=== PATIENT | female | born 1985 | race Native Hawaiian/Other Pacific Islander ===

== ENCOUNTER 2017-01-14 02:15 | Emergency (ER) | payer BC ==
[~2017-01-14] VITALS: Ht 165.1 cm; Wt 128.1 kg
[2017-01-14 02:22] VITALS: TEMP 37; Ht 165.1 cm; Wt 128.1 kg
[2017-01-14] MEDS ORDERED: SODIUM CHLORIDE 0.9% 1000ML 1,000 ML IV STA (02:45)
[2017-01-14 03:15] LABS: URINE APPEARANCE CLEAR (CLEAR); URINE BILIRUBIN NEG (NEG); URINE COLOR YELLOW; URINE NITRITE NEG (NEG); URINE SPECIFIC GRAVITY 1.013 (1.000-1.030); UROBILINOGEN NEG (NEG)
[2017-01-14 03:19] LABS: MANUAL MICROSCOPIC REQUIRED? NO; REVIEW REQ? NO
--- NOTE | 2017-01-14 03:23 | EMERGENCY ROOM VISIT NOTE ---
History Report prepared by Eriberto: Jaylyn Weber Under the Supervision of: Dr. Sidney Lopez D.O. First contact with patient: 02:37 Chief Complaint: FLANK PAIN Stated Complaint: PAIN IN RIGHT SIDE AND BACK History of Present Illness The patient is a 31 year old female who presents to the Emergency Room with complaints of persistent right flank pain starting yesterday evening. She currently rates her discomfort as a 7/10 in severity. The pain worsens when she is lying down. It improves when she is standing. The pain seems to depend on what position she is in and how she moving. She reports hematuria. She has pain in her side with breathing. She denies any dysuria, chest pain, SOB, abdominal pain, vaginal bleeding, or discharge. She has a history of UTI, hypertension, and lower back pain attributed to arthritis. She still has her gallbladder. She denies any history of kidney stones. Her LNMP was in October. She sometimes takes progesterone. She is not sexually active. She denies any tobacco or alcohol use. Source of History: patient Onset: yesterday evening Position: other (right flank) Symptom Intensity: 7/10 Quality: other (pain) Timing: other (persistent) Modifying Factors (Worsening): other (lying down) Modifying Factors (Relieving): other (standing) Associated Symptoms: No chest pain, No SOB, No abdominal pain Note: Pt reports hematuria, side pain with breathing. Pt denies dysuria, vaginal bleeding/discharge. Review of Systems See HPI for pertinent positives & negatives. A total of 10 systems reviewed and were otherwise negative. Past Medical & Surgical Medical Problems: (1) Hypertension Family History No pertinent family history stated. Social History Smoking Status: Never Smoker Occupation Status: employed Current/Historical Medications Scheduled Hydrochlorothiazide (Hydrochlorothiazide), 1 TAB PO DAILY Loratadine (Claritin), 10 MG PO DAILY Allergies Coded Allergies: Levofloxacin (Verified Allergy, Intermediate, FEET & HANDS TINGLING, ) Physical Exam Vital Signs Date Time Temp Pulse Resp B/P (MAP) Pulse Ox O2 Delivery O2 Flow Rate FiO2 01/14/17 04:46 85 18 175/107 100 Room Air 01/14/17 04:16 85 19 174/113 95 01/14/17 02:22 37.0 87 19 165/107 96 Room Air Physical Exam GENERAL: Patient is awake, alert, and in no acute distress. Patient is resting comfortably and showing no signs of anxiety EYES: The conjunctivae are clear. The pupils are round and reactive. EARS, NOSE, MOUTH AND THROAT: The nose is without any evidence of any deformity. Mucous membranes are moist tongue is midline NECK: The neck is nontender and supple. RESPIRATORY: Normal respiratory effort is noted there is no evidence of wheezing rhonchi or rales CARDIOVASCULAR: Regular rate and rhythm noted there no murmurs rubs or gallops normal S1 normal S2 GASTROINTESTINAL: The abdomen is mildly distended but soft. RUQ tenderness noted to palpation, no guarding or rigidity. BACK: No midline tenderness or or step-off noted range of motion in flexion extension as well as rotation no signs of muscle spasm noted MUSCULOSKELETAL/EXTREMITIES: There is no evidence of gross deformity full range of motion is noted in the hips and shoulders SKIN: There is no obvious evidence of any rash. There are no petechiae, pallor or cyanosis noted. NEUROLOGIC: Patient is awake alert and oriented x3 Medical Decision & Procedures ER Provider Diagnostic Interpretation: X-ray results as stated below per interpretation by me. Chest X-ray: No definite infiltrate, no free air, nonspecific bowel gas pattern noted, constipation noted, no signs of bowel obstruction. Right upper quadrant ultrasound was obtained in the emergency department. The report was reviewed. Preliminary Findings Only See Final Report For Complete Findings US RUQ: Gallstones. No sludge, gallbladder wall thickening, or pericholecystic fluid. Negative sonographic Lira's sign. The common bile duct is within normal limits measuring 4 mm. The liver is enlarged measuring 23.2 cm with increased echogenicity suggesting hepatic steatosis. The partially visualized pancreas is unremarkable. The right kidney is unremarkable. Radiologist: Darius Peña MD Study ready at 04:12 and initial results transmitted at 04:22 Laboratory Results 01/14/17 03:26 Red Blood Count 5.13, Mean Corpuscular Volume 83.2, Mean Corpuscular Hemoglobin 26.9, Mean Corpuscular Hemoglobin Concent 32.3, Mean Platelet Volume 9.7, Neutrophils (%) (Auto) 60.8, Lymphocytes (%) (Auto) 26.9, Monocytes (%) (Auto) 7.4, Eosinophils (%) (Auto) 4.4, Basophils (%) (Auto) 0.4, Neutrophils # (Auto) 6.53, Lymphocytes # (Auto) 2.89, Monocytes # (Auto) 0.79, Eosinophils # (Auto) 0.47, Basophils # (Auto) 0.04 01/14/17 03:26 Test 01/14/17 02:58 01/14/17 03:26 Urine Color YELLOW Urine Appearance CLEAR (CLEAR) Urine pH 6.0 (4.5-7.5) Urine Specific [place] 1.013 (1.000-1.030) Urine Protein NEG (NEG) Urine Glucose (UA) NEG (NEG) Urine Ketones NEG (NEG) Urine Occult Blood 1+ (NEG) Urine Nitrite NEG (NEG) Urine Bilirubin NEG (NEG) Urine Urobilinogen NEG (NEG) Urine Leukocyte Esterase NEG (NEG) Urine WBC (Auto) 1-5 /hpf (0-5) Urine RBC (Auto) 0-4 /hpf (0-4) Urine Hyaline Casts (Auto) 0 /lpf (0-5) Urine Epithelial Cells (Auto) 5-10 /lpf (0-5) Urine Bacteria (Auto) NEG (NEG) White Blood Count 10.73 K/uL (4.8-10.8) Red Blood Count 5.13 M/uL (4.2-5.4) Hemoglobin 13.8 g/dL (12.0-16.0) Hematocrit 42.7 % (37-47) Mean Corpuscular Volume 83.2 fL (80-100) Mean Corpuscular Hemoglobin 26.9 pg (25-34) Mean Corpuscular Hemoglobin Concent 32.3 g/dl (32-36) Platelet Count 281 K/uL (130-400) Mean Platelet Volume 9.7 fL (7.4-10.4) Neutrophils (%) (Auto) 60.8 % Lymphocytes (%) (Auto) 26.9 % Monocytes (%) (Auto) 7.4 % Eosinophils (%) (Auto) 4.4 % Basophils (%) (Auto) 0.4 % Neutrophils # (Auto) 6.53 K/uL (1.4-6.5) Lymphocytes # (Auto) 2.89 K/uL (1.2-3.4) Monocytes # (Auto) 0.79 K/uL (0.11-0.59) Eosinophils # (Auto) 0.47 K/uL (0-0.5) Basophils # (Auto) 0.04 K/uL (0-0.2) RDW Standard Deviation 37.6 fL (36.4-46.3) RDW Coefficient of Variation 12.4 % (11.5-14.5) Immature Granulocyte % (Auto) 0.1 % Immature Granulocyte # (Auto) 0.01 K/uL (0.00-0.02) Anion Gap 9.0 mmol/L (3-11) Est Creatinine Clear Calc Drug Dose 159.3 ml/min Estimated GFR () 134.4 Estimated GFR (Non- 116.0 BUN/Creatinine Ratio 22.9 (10-20) Calcium Level 9.1 mg/dl (8.5-10.1) Total Bilirubin 0.3 mg/dl (0.2-1) Direct Bilirubin < 0.1 mg/dl (0-0.2) Aspartate Amino Transf (AST/SGOT) 24 U/L (15-37) Alanine Aminotransferase (ALT/SGPT) 49 U/L (12-78) Alkaline Phosphatase 74 U/L (45-117) Total Protein 7.2 gm/dl (6.4-8.2) Albumin 3.5 gm/dl (3.4-5.0) Lipase 115 U/L (73-393) Human Chorionic Gonadotropin, Qual NEG (NEG) Laboratory results per my review. Medications Administered Medications (Trade) Dose Ordered Sig/[place] Route Start Time Stop Time Status Last Admin Dose Admin Sodium Chloride 1,000 ml @ 999 mls/hr Q1H1M STAT IV 01/14/17 02:45 01/14/17 03:45 DC 01/14/17 02:45 999 MLS/HR Oxycodone HCl (Roxicodone Immediate Rel 5MG Home Pack) 1 homepack UD ONCE PO 01/14/17 04:45 01/14/17 04:46 DC 01/14/17 04:45 1 HOMEPACK ED Course 0241: The patient was evaluated in room B9. A complete history and physical examination were performed. 0245: NSS 1000 ml @ 999 mls/hr IV. 0428: Upon reevaluation, the patient is resting comfortably. I discussed the results and treatment plan with her. She verbalized agreement of the treatment plan. She was discharged home. 0445: Oxycodone HCl 1 homepack PO. Medical Decision Prior records/ancillary studies reviewed. Triage Nursing notes reviewed. The patient's history was concerning for right flank pain. Differential diagnosis: Etiologies such as renal colic, appendicitis, diverticulitis, mesenteric ischemia, aortic pathology, infections, inflammatory bowel disease, PUD, biliary pathology, UTI, as well as others were entertained. Medication Reconciliation: I attest that I have personally reviewed the patient' s current medications list. Blood pressure screening: Patient was found to have an elevated blood pressure and was referred to their primary doctor for recheck and further treatment. The patient is a 31-year-old female who presented to the emergency department for an evaluation of right flank pain. The patient had reproducible right upper quadrant and right flank pain. Her abdominal exam was not consistent with an acute surgical abdomen. The patient did not wish to have any medication for pain and was treated with IV fluids in the emergency department. She was reevaluated multiple times. I discussed the patient's laboratory and radiographic studies with her. On subsequent reevaluation she was feeling much better. I recommended that she rest and avoid any strenuous activity. At this time I feel her pain may be related to musculoskeletal back pain. She was encouraged to follow-up with her family doctor for further testing or return to the emergency department immediately if symptoms change worsen or the need arises. Impression Primary Impression: RUQ abdominal pain Additional Impression: Right flank pain Scribe Attestation The scribe's documentation has been prepared under my direction and personally reviewed by me in its entirety. I confirm that the note above accurately reflects all work, treatment, procedures, and medical decision making performed by me. Departure Information Dispostion Home / Self-Care Referrals Lula Whalen D.O. (PCP) Forms HOME CARE DOCUMENTATION FORM, IMPORTANT VISIT INFORMATION Patient Instructions Low Back Pain Self Care, [facility] Additional Instructions Call your family to schedule a follow-up appointment. Rest and avoid any strenuous activity or heavy lifting. Continue using Motrin and Tylenol as directed for mild pain. Return to the emergency department immediately if symptoms change worsen or the need arises. Your blood pressure was elevated in the emergency Department this evening. This can be nonspecific but I would recommend a repeat blood pressure check with your family Dr. as soon as possible to determine if you may need to be started on medications for hypertension. Problem Qualifiers
[2017-01-14 03:39] LABS: BASO % 0.4 %; BASO ABS # 0.04 K/uL (0-0.2); COMPLETE YES; EOS % 4.4 %; HEMATOCRIT 42.7 % (37-47); IG% 0.1 %; LYMPH % 26.9 %; LYMPH ABS # 2.89 K/uL (1.2-3.4); MEAN CELL VOLUME 83.2 fL (80-100); MEAN CORPUSCULAR HEMOGLOBIN 26.9 pg (25-34); MEAN CORPUSCULAR HGB CONC 32.3 g/dl (32-36); MEAN PLATELET VOLUME 9.7 fL (7.4-10.4); MONO % 7.4 %; NEUT % 60.8 %; PLATELET COUNT 281 K/uL (130-400); RED BLOOD COUNT 5.13 M/uL (4.2-5.4); WHITE BLOOD COUNT 10.73 K/uL (4.8-10.8)
[2017-01-14 03:58] LABS: ALT/SGPT 49 U/L (12-78); AST/SGOT 24 U/L (15-37); BLOOD UREA NITROGEN 16 mg/dl (7-18); BUN/CREATININE RATIO 22.9 (10-20); CALCIUM 9.1 mg/dl (8.5-10.1); CARBON DIOXIDE 26 mmol/L (21-32); CHLORIDE 105 mmol/L (98-107); CREATININE 0.69 mg/dl (0.60-1.20); GLUCOSE 114 mg/dl (70-99); POTASSIUM 3.6 mmol/L (3.5-5.1); SODIUM 140 mmol/L (136-145)
[2017-01-14 04:01] LABS: ALKALINE PHOSPHATASE 74 U/L (45-117)
[2017-01-14 04:22] LABS: PREG INTERNAL NEGATIVE QC NEG CLEAR BACKGROUND; PREG INTERNAL POSITIVE QC POS CONTROL LINE
[2017-01-14] MEDS ORDERED: HYDR12.55 PO (04:34)
[2017-01-14] MEDS ORDERED: CLR10 PO (04:34)
[2017-01-14] MEDS ORDERED: OXYCODONE IR HOME PACK PO ONE (04:45)
[2017-01-14 04:46] VITALS: BP 175/107; PULSE 85; O2SAT 100
--- NOTE | 2017-01-14 06:39 | DIAGNOSTIC IMAGING REPORT ---
ABDOMEN 2VIEW W/PA CHEST RTN HISTORY:31 yearsFemale acute right-sided ABDOMINAL PAIN/GI COMPARISON: None available TECHNIQUE: Single frontal view of the chest with erect and supine views of the abdomen. FINDINGS: Cardiomediastinal and hilar silhouettes are within normal limits. There is no pneumothorax or pleural effusion. Somewhat asymmetric opacity of the right lung base is ill-defined and is likely secondary to overlying soft tissue from breast density. No focal airspace consolidation is identified. There is mild convex right curvature of the midthoracic spine with convex left curvature of the lumbar spine. No pneumoperitoneum identified. No urolith or fracture is seen. Bowel gas pattern is nonobstructive. There is moderate volume of formed stool throughout the colon, notably within the right hemicolon and transverse colon. 6 mm accessory ossicles noted adjacent to the right acetabulum. IMPRESSION: 1. Ill-defined hazy opacity of the right lung base is likely secondary to composite density artifact. 2. Nonobstructive bowel gas pattern. 3. No urolith. 4. Moderate volume of formed stool may reflect constipation within the appropriate clinical setting. The above report was generated using voice recognition software. It may contain grammatical, syntax or spelling errors. Electronically signed by: Liang Man M.D. 01/14/2017 6:38 AM Dictated Date/Time: 01/14/2017 6:35 AM
--- NOTE | 2017-01-14 06:42 | DIAGNOSTIC IMAGING REPORT ---
GALLBLADDER-ABD LIMITED HISTORY:31 yearsFemaleABDOMINAL PAIN/GI COMPARISON: Chest and abdomen radiographs of same day TECHNIQUE: Multiple real-time sonographic images of the abdominal right upper quadrant were obtained assessing grayscale appearance and color flow. FINDINGS: The imaged pancreas is unremarkable with the body and tail obscured by bowel gas. The exam is limited secondary to patient body habitus. There is increased echogenicity with poor through transmission of the liver compatible with fatty infiltration measuring up to 23 cm. Common bile duct appears normal measuring up to 4 mm transversely. No intrahepatic biliary ductal dilatation. There is a large 1.7 cm shadowing gallstone within the lumen of the gallbladder. No gallbladder wall thickening or pericholecystic fluid collections. Sonographic Lira sign was negative. The imaged right kidney is unremarkable without hydronephrosis. IMPRESSION: 1. Limited exam secondary to patient body habitus. 2. Cholelithiasis without sonographic evidence of acute cholecystitis. 3. Fatty infiltration of the liver. The above report was generated using voice recognition software. It may contain grammatical, syntax or spelling errors. Electronically signed by: Liang Man M.D. 01/14/2017 6:41 AM Dictated Date/Time: 01/14/2017 6:38 AM
== END 2017-01-14 04:52 | disposition home or self-care (01) ==
LOC: C.EDB 02:17
DX: R10.11 Right upper quadrant pain (principal); I10 Essential (primary) hypertension; Z87.440 Personal history of urinary (tract) infections; Z79.899 Other long term (current) drug therapy; Z88.8 Allergy status to other drugs, medicaments and biological substances

== ENCOUNTER 2023-05-13 07:49 | Observation (INO) ==
--- NOTE | 2023-05-07 08:28 | Anesthesiology Consultation ---
Date of Service May 07, 2023 Assessment & Plan (1) Encounter for pre-operative examination: - Check BSG AM DOS - Check test AM DOS - Infectious disease screening: Per assessment on 04/30/23: No known infectious disease contacts or current infectious disease symptoms. No noted Covid positive test result in past 90 days. Chart Review Chart Review: Acceptable Risk for Surgery and Patient NOT seen in Pre Admission Testing History Surgery Operation Date: 05/13/23 13:00 Proposed Procedures p Bilateral Breast Mastectomy - Bonnie Patrick DO s with Left [place] Lymph Node Biopsy - Bonnie Patrick, Height/Weight Height: 5 ft 6 in Weight: 122.47 kg Allergies Allergy/AdvReac Type Severity Reaction Status Date / Time levofloxacin Allergy Intermediate Feet/hands Verified 05/07/23 08:24 tingling Medications Home Medications Medication Instructions Recorded Confirmed Last Taken alprazolam 0.5 mg tablet 0.5 mg PO DAILY PRN when flying 03/22/23 04/30/23 Unknown atorvastatin 40 mg tablet 40 mg PO DAILY 03/22/23 04/30/23 Unknown hydrochlorothiazide 25 mg tablet 25 mg PO QAM 03/22/23 04/30/23 Unknown lamotrigine 25 mg tablet 25 mg PO QAM 03/22/23 04/30/23 Unknown lisinopril 20 mg tablet 20 mg PO QAM 03/22/23 04/30/23 Unknown loratadine 10 mg tablet 10 mg PO DAILY PRN Allergy Symptoms 03/22/23 04/30/23 Unknown sertraline 50 mg tablet 50 mg PO QAM 03/22/23 04/30/23 Unknown tirzepatide 10 mg/0.5 mL 12.5 mg subcut WK 03/22/23 04/30/23 Unknown subcutaneous pen injector (Mounjaro) Past Medical History Medical History Depression Anxiety Allergy-induced asthma No issues in years Ductal carcinoma in situ (DCIS) of left breast Diabetes Hypertension Past Family History Family History Unknown Adopted Past Surgical History Surgical History H/O wisdom tooth extraction H/O breast surgery Excision breast lesion Right Dr. Jose OR [facility] Social History Smoking Status: Never smoker Do You Dip or Chew Tobacco: No Hx Alcohol Use: Yes Alcohol type: beer and wine alcohol intake frequency: a few times a month Hx Substance Use: No substance use type: does not use Lab Results Anesthesia Preop Results Results Anesthesia Widget: WBC 12.31 K/ul (4.8-10.8) H 05/06/23 Hgb 11.4 g/dl (12.0-16.0) L 05/06/23 Hct 35.3 % (37.0-47.0) L 05/06/23 Plt 362 K/uL (130-400) 05/06/23 Na 138 mmol/L (136-145) 05/06/23 K 4.2 mmol/L (3.5-5.1) 05/06/23 Cl 103 mmol/L (98-107) 05/06/23 CO2 28 mmol/L (21-32) 05/06/23 BUN 16 mg/dl (6-23) 05/06/23 Creat 0.72 mg/dl (0.6-1.2) 05/06/23 Glucose Level 77 mg/dl (70-99(Fasting)) 05/06/23 Testing Electrocardiogram Date: 05/06/23 Findings: + NSR @ (35)
[~2023-05-13 07:49] MED LIST: ACETAMINOPHEN 1000 MG/100 ML IV IV ONE; LACTATED RINGER'S 1,000 ML IV SCH; LR 15ML/HR IV SCH
--- NOTE | 2023-05-13 10:06 | Nuclear Medicine Report ---
LYMPHOSCINTIGRAPHY CLINICAL HISTORY: left breast cancer, injection for lymph node biops PROCEDURE: Using standard sterile technique, 4 intradermal and one deep injection of 2.5 mCi of Lymph oseek was placed in the left breast. The patient tolerated the procedure well. There were no immediat e complications. The patient was subsequently transported to the surgical suite. No imaging was obtai kd at the referring physician's request. IMPRESSION: Satisfactory injection of Lymphoseek in the left breast. ACT 112: Negative or not required by law. Electronically signed by: Fred Venegas M.D. 05/13/2023 10:05 AM
[2023-05-13] MEDS ORDERED: HYDROmorphone INJ 2 MG/ML SYR/VIAL IV PRN (11:56)
[2023-05-13] MEDS ORDERED: fentaNYL citrate PF 100 MCG/2 ML VIAL IV PRN (11:56)
[2023-05-13] MEDS ORDERED: ATROPINE SULFATE 0.1 MG/ML 10ML SYR IV PRN (11:56)
[2023-05-13] MEDS ORDERED: ePHEDrine sulfate 50 MG/ML AMP IV PRN (11:56)
[2023-05-13] MEDS ORDERED: ONDANSETRON INJ 2 MG/ML 2 ML VIAL IV PRN ×2 (11:56→20:54)
[2023-05-13] MEDS ORDERED: ONDANSETRON INJ 2 MG/ML 2 ML VIAL ONE (13:24)
[2023-05-13] MEDS ORDERED: PROPOFOL IV EMULSION 10 MG/ML 20 ML VIAL IV ONE (13:24)
[2023-05-13] MEDS ORDERED: MIDAZOLAM HCL 1 MG/ML 2ML VIAL ONE (13:24)
[2023-05-13] MEDS ORDERED: fentaNYL citrate PF 100 MCG/2 ML VIAL ONE ×4 (13:24→18:55)
[2023-05-13] MEDS ORDERED: DEXAMETHASONE SOD INJ 4 MG/ML VIAL ONE (13:24)
[2023-05-13] MEDS ORDERED: LIDOCAINE 2% 2 ML VIAL/AMP(20MG/ML) INFIL ONE (13:24)
[2023-05-13] MEDS ORDERED: ROCURONIUM BROMIDE 10 MG/ML 5 ML VIAL IV ONE ×2 (13:24→16:30)
--- NOTE | 2023-05-13 13:56 | History & Physical Bridge Note ---
Date of Service May 13, 2023 History & Physical Bridge Note I have examined the patient, reviewed the History & Physical and in the interval since the performance of the History & Physical I have noted the following changes of clinical significance: no changes noted. Patient presents for a b/l mastectomy with left SLNB. The consent is reviewed and is on the chart.
[2023-05-13] MEDS ORDERED: SODIUM CHLORIDE 0.9% PF INJ 10 ML VIAL ONE (14:13)
[2023-05-13] MEDS ORDERED: BUPIVACAINE/EPINEPHRINE 0.5% MPF 1:200,000 30 ML VIAL ONE ×2 (14:13→17:40)
[2023-05-13] MEDS ORDERED: METHYLENE BLUE 0.5% 10 ML VIAL ONE (14:13)
[2023-05-13] MEDS ORDERED: GLYCOPYRROLATE 0.2 MG/ML VIAL ONE (18:37)
[2023-05-13] MEDS ORDERED: NEOSTIGMINE METHYLSULFATE 1 MG/ML 10ML VIAL ONE (18:37)
[2023-05-13] MEDS ORDERED: KETOROLAC 30 MG/ML VIAL ONE (18:42)
--- NOTE | 2023-05-13 19:36 | Operative Report ---
PG Post Operative Report Pre & Post Diagnosis Operation Date: 05/13/23 12:40 Pre-Op Diagnosis: Left Breast Ductal Carcinoma in SITU Post-Op Diagnosis: Left Breast Ductal Carcinoma in SITU I identified the patient and participated in the time-out.: Yes Procedure Operation Date: 05/13/23 12:40 Actual Procedures p Bilateral Breast Mastectomy(Bilateral) - Bonnie Patrick DO s with Left [place] Lymph Node Biopsy(Left) - Bonnie Patrick DO Surgeon Bonnie Patrick DO Scenery Builder LOYDA Nesbitt Estimated Blood Loss 15 Findings Consistent with Post-Op Diagnosis Specimens Left axillary sentinel lymph node Left breast Right breast Drains Left breast 10 [place] CONY drain Right breast 10 [place] CONY drain Anesthesia Type General Complications None Indications Left breast DCIS Description of Procedure The patient was brought back to the operating room and placed on the operating room table in supine position. SCDs were applied to bilateral lower extremities. The patient was connected to cardiac and oxygen monitoring. She was administered supplemental oxygen as well as general anesthesia. A secure airway was obtained. A Gonzalez catheter was inserted. Methylene blue was injected into the dermal lymphatics at the left areola. The anterior chest wall and left axilla were prepped and draped in typical sterile fashion. A timeout was conducted. After marking the borders for mastectomy and a line for planned incision at the left breast, a full-thickness skin incision was made with a 15 blade. Cautery was used to elevate flaps in all directions to the landmark borders of the breast. Attention was turned to the axillary tail where the gamma probe was used to identify a lymph node that did not appear blue with an in vivo count of 1500 and an ex vivo count of 1883. This lymph node was excised and sent to pathology in a labeled container for further analysis. No other sentinel lymph nodes were identified. The remainder of the breast was dissected and elevated away from the muscular wall using cautery. There were a lot of vessels encountered during this dissection these were controlled with 2-0 silk ties. The prepectoral fascia was left intact. The neurovascular bundle at the axillary tail was controlled with silk suture. The breast was labeled with a 2-0 silk suture the axillary tail and the left breast was sent to pathology for further analysis. The wound was copiously irrigated. Hemostasis was achieved using cautery. A 10 [place] CONY drain was inserted at this mastectomy site. The deep dermis was reapproximated using 3-0 Vicryl suture. The skin was coapted using 4-0 Vicryl suture. The skin incision was sealed with Dermabond. Attention was then turned to the right breast where a new set up was with new instruments. Similar to the left sides, landmarks were marked with a new sterile marking pen and a line for incision was made at the right breast. A full-thickness skin incision was made with a 15 blade. Cautery again was used to elevate flaps in all directions. Bleeding was controlled with cautery and silk ties were appropriate. The breast was elevated from the pectoralis and ser ratus muscles leaving fascia intact. The right breast was placed in a labeled container and sent to pathology for further analysis. The wound was copiously irrigated and dried. Hemostasis was checked thoroughly and achieved using cautery. A 10 [place] CONY drain was inserted into the site. The deep dermis was reapproximated using 3-0 Vicryl suture. The skin was coapted using 4-0 Vicryl suture. The incision was sealed with Dermabond. The anterior chest wall was further dressed with pressure dressing using dry sterile gauze as well as ABD pads and an Ronan bandage was used. The patient tolerated the procedure well. Gonzalez catheter was removed, she was awakened from anesthesia and transferred to recovery in stable condition. I attest to the content of the Intraoperative Record and any orders documented therein. Any exceptions are noted below.
--- NOTE | 2023-05-13 20:03 | Anesthesiology Progress Note ---
Date of Service May 13, 2023 Anesthesia Post Procedure Vital Signs Vital Signs: Temp Pulse Pulse Resp BP BP Pulse Ox 05/13/23 19:55 87 12 157/90 H 97 05/13/23 19:45 92 H 14 158/83 H 99 05/13/23 19:37 96.8 F L 83 16 153/89 H 98 05/13/23 08:48 98.2 F 74 18 138/80 98 O2 Del Method O2 Flow Rate 05/13/23 19:55 Oxymask 5 05/13/23 19:45 Oxymask 5 05/13/23 19:37 Oxymask 5 05/13/23 08:48 Room Air Transfer of Care Handoff Completed per policy Notes Mental Status: alert / awake / arousable and participated in evaluation Patient Amnestic to Procedure: Yes Nausea / Vomiting: adequately controlled Pain: adequately controlled Airway Patency, RR, SpO2: stable & adequate BP & HR: stable & adequate Hydration State: stable & adequate Anesthetic Complications: no major complications apparent and Pt Satisfied with anesthetic care
[2023-05-13] MEDS ORDERED: ACETAMINOPHEN 325 MG TAB PO PRN (20:54)
[2023-05-13] MEDS ORDERED: SODIUM CHLORIDE 0.9% 1,000 ML IV SCH (20:54)
[2023-05-13] MEDS ORDERED: GLUCOSE 10 TAB/TUBE PO PRN (20:54)
[2023-05-13] MEDS ORDERED: MoRPHine SULFATE 4 MG/ML 1 ML CARP\\VIAL IV PRN (20:54)
[2023-05-13] MEDS ORDERED: DEXTROSE 50% 50 ML SYRINGE IV PRN (20:54)
[2023-05-13] MEDS ORDERED: MoRPHine SULFATE 2 MG/ML CARP IV PRN (20:54)
[2023-05-13] MEDS ORDERED: GLUCOSE 40% GEL 15 GM TUBE PO PRN (20:54)
[2023-05-13] MEDS ORDERED: PHARMACY GLYCEMIC MGMT CONSULT PRN (20:54)
[2023-05-13] MEDS ORDERED: oxyCODONE HCL IR 5 MG TAB (IMMEDIATE RELEASE) PO PRN ×2 (20:54)
[2023-05-13] MEDS ORDERED: GLUCAGON FOR INJ 1 MG VIAL SQ PRN (20:54)
[2023-05-13] MEDS ORDERED: CARBOHYDRATES FOR HYPOGLYCEMIA PO PRN (20:54)
[2023-05-13] MEDS: LACTATED RINGER'S 1,000 ML IV SCH (21:43)
[2023-05-13] MEDS: INSULIN ASPART PER UNIT CHARGE SC SCH (22:02)
[2023-05-14] MEDS: INSULIN ASPART PER UNIT CHARGE SC SCH ×2 (08:21→11:42)
[2023-05-14] MEDS ORDERED: lisinopril 20 MG TAB PO SCH (09:00)
[2023-05-14] MEDS ORDERED: SERTRALINE HCL 50 MG TABLET PO SCH (09:00)
[2023-05-14] MEDS ORDERED: hydroCHLOROthiazide 25 MG TAB PO SCH (09:00)
[2023-05-14] MEDS ORDERED: lamoTRIgine 25 MG TAB PO SCH (09:00)
[2023-05-14 09:22] LABS: Basophils # (auto) 0.04 K/uL (0.00-0.20); Basophils % (auto) 0.2 %; Eosinophils # (auto) 0.04 K/uL (0.00-0.50); Eosinophils % (auto) 0.2 %; Hematocrit (blood only) 27.1 % (37.0-47.0); Hemoglobin 8.8 g/dl (12.0-16.0); Immature Granulocytes # (auto) 0.06 K/uL (0.01-0.20); Immature Granulocytes % (auto) 0.3 %; Lymphocytes # (auto) 2.73 K/uL (1.20-3.40); Lymphocytes % (auto) 15.9 %; Mean Corpuscular Hemoglobin 26.7 pg (25.0-34.0); Mean Corpuscular Hgb Conc 32.5 g/dL (32.0-36.0); Mean Corpuscular Volume 82.1 fL (80.0-100.0); Mean Platelet Volume 9.9 fL (9.4-12.4); Monocytes # (auto) 1.01 K/uL (0.11-0.59); Monocytes % (auto) 5.9 %; Neutrophils # (auto) 13.28 K/uL (1.40-6.50); Neutrophils % (auto) 77.5 %; Platelet Count 339 K/uL (130-400); RDW Coefficient of Variation 13.2 % (11.5-14.5); RDW Standard Deviation 39.8 fL (36.4-46.3); White Blood Count 17.16 K/ul (4.8-10.8)
[2023-05-14 09:37] LABS: BUN Creatinine Ratio 14.9 (10-20); Calcium 8.5 mg/dl (8.6-10.3); Creatinine Clr Calc Pharmacy 138.3 ml/min; Est GFR (African American) 119.1 ml/min; Est GFR (Non-African American) 102.8 ml/min; Potassium 3.7 mmol/L (3.5-5.1)
[2023-05-14] MEDS: LACTATED RINGER'S 1,000 ML IV SCH (11:00)
--- NOTE | 2023-05-14 11:20 | Surgery Progress Note ---
Date of Service May 14, 2023 Assessment & Plan (1) S/P mastectomy, bilateral: Plan: POD 1 bilateral mastectomy, right lateral ecchymosis bilateral sites covered with dermabond, CDI, gauze, abd, and sona wrap for pressure. CONY drains sanguinous fluid Reports pain a 1/10 no complaints Admission and Anticipated Discharge Date Admission Date: May 13, 2023 Supervising Physician Co-Signing Physician Notes Patient will be discharged home today. Subjective patient reports pain a 1/10 with movements tolerating reg diet no n/v no complaints Review of Systems Constitutional: no fever and no chills Respiratory: no dyspnea Cardiovascular: no chest pain Gastrointestinal: no abdominal pain, no nausea and no vomiting Genitourinary: no problem reported Physical Exam Physical Exam: alert oriented Constitutional: well developed, cooperative and comfortable; no acute distress Respiratory: normal respiratory effort and able to speak in complete sentences; no respiratory distress Cardiovascular: Rate/Rhythm: regular rate Chest (Breasts): Additional Comments: POD 1 bilateral mastectomy, right lateral ecchymosis bilateral sites covered with dermabond, CDI, gauze, abd, and sona wrap for pressure. CONY drains sanguinous fluid Gastrointestinal (Abdomen): Inspection/Auscultation: abdomen not distended Percussion/Palpation: abdomen soft; abdomen nontender Results & Data Vital Signs (Past 12 Hours) Vital Signs Temp Pulse Pulse Resp BP BP Pulse Ox 05/14/23 07:41 98.4 F 81 16 109/75 96 05/14/23 05:14 98.6 F 96 H 18 130/69 94 05/14/23 00:41 97.7 F 86 19 114/73 96 05/13/23 23:49 98.1 F 97 H 18 133/80 97 O2 Del Method 05/14/23 07:41 Room Air 05/14/23 05:14 Room Air 05/14/23 00:41 Room Air 05/13/23 23:49 Room Air PG Care Time/CCT Total # of Minutes Spent Total Time Spent with Patient: Total time spent is greater than 50% in coordination of care (as documented) at patient's floor/unit and/or counseling patient: Coding Level of Care Code 23571 Post Operative Follow-Up Diagnoses S/P mastectomy, bilateral Z90.13
--- NOTE | 2023-05-14 12:15 | Pharmacy Report ---
Pharmacy Glycemic Short Note 2 - Date of Service May 14, 2023 - Glycemic Short BSG Results (Last 24 hours): 05/13/23 05/13/23 05/14/23 19:40 21:37 09:00 Glucose 159 H POC Glucose 123 H 130 H 05/14/23 11:35 Glucose POC Glucose 109 H OUTPATIENT ANTIDIABETIC REGIMEN: * Tirzepatide 12.5 mg SQ weekly (Sundays) ASSESSMENT: * Ms Davis is a 38 y/o F with a PMH of T2DM who presents s/p mastectomy. * Patient's BSGs yesterday were 89 (preop) and 123 (postop at HS). * Patient's BSG at lunch was 109 mg/dL. * HbA1C ordered for tomorrow if patient stays admitted. * Continue to hold basal as all BSGs < 130 mg/dL. * Continue Novolog. PLAN FOR INPATIENT GLYCEMIC CONTROL: * Hold outpatient oral diabetes medications * Basal insulin * hold * Bolus insulin * NovoLog per scale ACHS or Q6hrs while NPO * Goal Range: Low 90 mg/dL - High 140 mg/dL * Correction Factor: 40 mg/dL/unit * Nutritional / Prandial insulin per carb ratio of 1 unit per - grams CHO consumed T
--- NOTE | 2023-05-14 13:51 | Discharge Summary ---
Date of Service May 14, 2023 Admission HPI Per Admitting Provider Dulce presented to the [facility] for planned b/l mastectomy which she successfully underwent yesterday, 05/13/23. The details of the operative report can be found in a separate dictation. She was admitted overnight for observation and hemodynamic monitoring. She did well overnight without any hemodynamic issues. She has been ambulating without lightheadedness or dizziness and is tolerating her usual diet. A.m. labs do reveal worsened anemia with an H/H of 8.8/27.1 from 11.4/35.3 preoperatively. Principal Diagnosis Left breast DCIS Discharge Exam Constitutional Afebrile, mentating at baseline, not diaphoretic, NAD Chest (Breasts) Additional Comments: Decreasing CONY drainage. Surgical dry and dressings intact Discharge Data Allergies Allergy/AdvReac Type Severity Reaction Status Date / Time levofloxacin Allergy Intermediate Feet/hands Verified 05/13/23 08:46 tingling Procedures Performed Operation Date: 05/13/23 12:40 Actual Procedures p Bilateral Breast Mastectomy with Left [place] Lymph Node Biopsy(Bilateral) - Bonnie Patrick DO Ordered Studies 05/13/23 05:00 US - OR guided needle placemen Routine Hospital Course (1) Ductal carcinoma in situ (DCIS) of left breast: (2) S/P mastectomy, bilateral: Plan Status post b/l mastectomy. HD stable Patient will be discharged home today. Follow-up age/age in 1 to 2 days. Measure CONY drain output daily Keep CONY drain sites as well as surgical incision sites dry. Detailed discharge instructions are provided. Patient will return to clinic in 2 weeks. Total Time Total Time Spent Total Time Spent (In Minutes): 30 minute Discharge Plan Discharge Items Patient Disposition: Home - Self-Care Reason For Visit: Left Breast Ductal Carcinoma in SITU Discharge Diagnosis: bilateral breast mastectomy Goals: Measure CONY drainage at least daily. Activity: As commented below Activity Comment: do not lift your arms above your head Lifting: No more than 10 pounds Bathing Comment: Do not shower until cleared by your surgeon, keep surgical areas dry. Exercise/Sports: Wait until after follow-up appointment Non-emergency contact: Surgeon Call non-emergency contact if: you have any medication questions, your symptoms worsen, your pain is unusual for you, your temperature is above 101.5, your wound has increased redness, your wound has increased drainage and your wound pain has increased Follow-up/Referrals: Lula Whalen, [Primary Care Provider] - Bonnie Patrick DO [Physician] - (Call office for a follow up in 2 weeks ) Diet: Carb Consistent or DM2 Ambulatory Orders: Complete Blood Count no Diff (Timed) Timeframe: 1 Day Location: Determined by Patient Ordered By: Bonnie Patrick Addtl Attending Provider Instructions: You have surgical glue called dermabond on your surgical site incisions. You may shower with this on. This will tend to come off within a couple of weeks. Do not pick at it. Care for your drains as you have been instructed . Pending Studies at Discharge: Yes Studies:: surgical pathology Stand-Alone Forms: My [facility], Pain - Opioid Pain Management Medications and DC Order Prescriptions: New oxycodone 5 mg capsule 5 mg PO Q6H PRN (Reason: pain) Qty: 7 0RF Continued alprazolam [Xanax] 0.5 mg tablet 0.5 mg PO DAILY PRN (Reason: when flying) atorvastatin 40 mg tablet 40 mg PO DAILY Mounjaro 10 mg/0.5 mL pen injector 12.5 mg subcut WK Patient Comments: SUNDAYS lamotrigine [Lamictal] 25 mg tablet 25 mg PO QAM sertraline [Zoloft] 50 mg tablet 50 mg PO QAM hydrochlorothiazide 25 mg tablet 25 mg PO QAM lisinopril 20 mg tablet 20 mg PO QAM loratadine [Claritin] 10 mg tablet 10 mg PO DAILY PRN (Reason: Allergy Symptoms) Discharge Orders: Discharge Order (Routine); Ordered 05/13/23 Ordered By: Star Pierson/Other Patient Handouts: Breast Reduction Surgery Admission Data Admit Date/Time: 05/13/23 18:09 Attending Provider: Bonnie Patrick Admit Provider: Bonnie Patrick Primary Care Provider: Lual Whalen Other Interventions: Discharge Summary Assessment (RN) Last Done: 05/14/23 13:49 Coding Level of Care Code 66534 IN/OBS DISCH 30 MIN/LESS Diagnoses Ductal carcinoma in situ (DCIS) of left breast D05.12 S/P mastectomy, bilateral Z90.13
== END 2023-05-14 14:43 | disposition home or self-care (01) ==
LOC: ASU 07:49 → 3N 07:49
DX: Z17.0 Estrogen receptor positive status [ER+]; Z79.899 Other long term (current) drug therapy; D64.9 Anemia, unspecified; N60.11 Diffuse cystic mastopathy of right breast; E11.9 Type 2 diabetes mellitus without complications; D05.12 Intraductal carcinoma in situ of left breast; Z79.85 Long-term (current) use of injectable non-insulin antidiabetic drugs; Z88.1 Allergy status to other antibiotic agents; I10 Essential (primary) hypertension; Z98.890 Other specified postprocedural states